=== PATIENT | male | born 1960 | race Hispanic/Latino ===

== ENCOUNTER 2017-01-11 15:13 | Observation (INO) | payer MEDICARE ==
[2017-01-11 16:20] LABS: BASO % 0.3 % (0.0-2.0); EOS # 0.1 K/uL (0.0-0.7); EOS % 1.4 % (0.0-4.0); HEMATOCRIT 39.8 % (35.0-51.0); LYMPH # 0.8 K/uL (1.0-4.3); LYMPH % 11.4 % (20.0-40.0); MEAN CELL VOLUME 87.7 fL (80.0-94.0); MEAN CORPUSCULAR HEMOGLOBIN 29.6 pg (27.0-31.0); MEAN CORPUSCULAR HGB CONC 33.8 g/dL (33.0-37.0); MEAN PLATELET VOLUME 8.6 fL (7.2-11.7); MONO # 0.3 K/uL (0.0-0.8); MONO % 4.3 % (0.0-10.0); RED CELL DISTRIBUTION WIDTH 14.6 % (11.5-14.5); WHITE BLOOD COUNT 7.4 K/uL (4.8-10.8)
--- NOTE | 2017-01-11 16:22 | RAD ---
PROCEDURE: CHEST RADIOGRAPH, 1 VIEW HISTORY: Detox/Psy COMPARISON: 06/30/2015 FINDINGS: LUNGS: Minimal hazy opacity in the left lung base likely atelectasis. Otherwise no other focal airspace opacity. PLEURA: No pneumothorax or pleural fluid seen. CARDIOVASCULAR: Normal. OSSEOUS STRUCTURES: The osseous structures demonstrate degenerative changes. Healed rib fractures on the left, stable. VISUALIZED UPPER ABDOMEN: Upper abdomen is suboptimally evaluated. OTHER FINDINGS: None. IMPRESSION: Minimal hazy opacity in the left lung base, likely atelectasis.
[2017-01-11 16:23] LABS: CHLORIDE 96 mmol/L (98-107); POTASSIUM 4.6 mmol/L (3.6-5.2); SODIUM 140 mmol/L (132-148)
[2017-01-11 16:25] LABS: BILIRUBIN,TOTAL 0.3 mg/dL (0.2-1.3); CARBON DIOXIDE 31 mmol/L (22-30); GFR AFRICAN-AMERICAN 54
[2017-01-11 16:26] LABS: ALB/GLOB RATIO 1.3 (1.0-2.1); ALKALINE PHOSPHATASE 49 U/L (38-126); ALT/SGPT 43 U/L (21-72); AST/SGOT 37 U/L (17-59); BLOOD UREA NITROGEN 24 mg/dL (9-20); GLUCOSE,RANDOM 122 mg/dL (75-110); TOTAL PROTEIN 7.4 g/dL (6.3-8.3)
[2017-01-11 16:27] LABS: ALCOHOL SERUM < 10 mg/dl (0-10)
[2017-01-11] MEDS ORDERED: Sodium Chloride 0.9% 1,000 ML IV ONE (17:08)
[2017-01-11] MEDS ORDERED: Naloxone 0.4 mg/ml Inj (Adult) IVP ONE (17:27)
--- NOTE | 2017-01-11 17:29 | C.PDOC ---
History Of Present Illness The patient, a 56y/o male who has an intermittent history of heroin abuse, presents to the ED via EMS for evaluation after he was found unresponsive [employer]. As per patient's ex-, patient was recently in a rehab program and was doing fine. Today, patient was found to be cyanotic and apneic in his house, after which EMS was called. As per EMS, patient received Narcan en route to ED and responded well. When asked, patient states he was getting ready to shovel snow outside prior to the onset of his symptoms. Upon arrival to ED, patient was awake, cooperative, and appeared to be retracted. As per historian, patient uses heroin via nasal administration. Otherwise, patient denies any complaints in the ED as well as headache, nausea, vomiting, chest pain, and shortness of breath. Time Seen by Provider: 01/11/17 15:17 Chief Complaint (Nursing): Substance Abuse History Per: Patient, EMS, Other (ex- ) History/Exam Limitations: no limitations Onset/Duration Of Symptoms: Hrs Current Symptoms Are (Timing): Still Present Suicide/Self Injury Attempted (Context): None Modifying Factor(s): Other (heroin ) Associated Symptoms: denies: Suicidal Thoughts, Suicidal Plan Involuntary Hold By: None Recent travel outside of the [place]: No Additional History Per: Patient, EMS Past Medical History Reviewed: Historical Data, Nursing Documentation, Vital Signs Vital Signs: Last Vital Signs Temp 97.3 F L 01/11/17 16:56 Pulse 94 H 01/11/17 17:50 Resp 14 01/11/17 17:50 BP 116/60 01/11/17 17:50 Pulse Ox 94 L 01/11/17 18:08 - Medical History PMH: Anxiety, COPD, HTN Denies: HIV, Hypercholesterolemia (denies), Chronic Kidney Disease Surgical History: No Surg Hx - [facility] Procedures APPLICATION OF SPLINT (02/05/14) DRAINAGE OF R LOW LEG SUBCU/FASCIA, OPEN APPROACH, DIAGN (11/15/16) INSERTION OF INFUSION DEV INTO R SUBCLAV VEIN, PERC APPROACH (11/15/16) PERFORMANCE OF URINARY FILTRATION, MULTIPLE (11/15/16) REMOVAL OF INFUSION DEVICE FROM UPPER VEIN, PERC APPROACH (11/15/16) Family History: States: Unknown Family Hx - Social History Hx Alcohol Use: No Hx Substance Use: No - Immunization History Hx Tetanus Toxoid Vaccination: No Hx Influenza Vaccination: No Hx Pneumococcal Vaccination: No Review Of Systems Except As Marked, All Systems Reviewed And Found Negative. Cardiovascular: Negative for: Chest Pain Respiratory: Negative for: Shortness of Breath Gastrointestinal: Negative for: Nausea, Vomiting Neurological: Positive for: Other (+cyanotic and apneic). Negative for: Headache Physical Exam - Physical Exam Appears: Non-toxic, No Acute Distress, Other (intermittently lethargic and groggy.) Skin: Normal Color, Warm, Dry Head: Atraumatic, Normacephalic Eye(s): bilateral: Normal Inspection, PERRL, EOMI Ear(s): Bilateral: Normal Nose: Normal, No Discharge Oral Mucosa: Moist Throat: Normal, No Erythema, No Exudate Neck: Normal ROM, Supple Chest: Symmetrical, No Deformity, No Tenderness Cardiovascular: Rhythm Regular, No Murmur Respiratory: Normal Breath Sounds, No Rales, No Rhonchi, No Wheezing Gastrointestinal/Abdominal: Soft, No Tenderness, No Guarding, No Rebound Extremity: Normal ROM, Capillary Refill (less than 2 seconds) Neurological/Psych: Oriented x3, Normal Speech, Normal Cognition Gait: Steady ED Course And Treatment - Laboratory Results Result Diagrams: 01/11/17 16:08 01/11/17 16:08 O2 Sat by Pulse Oximetry: 94 Medical Decision Making Medical Decision Making: Impression: 56y/o male found cyanotic and apneic [employer] Plan: * labs * CXR * EKG * Narcan IV * IV Fluids * reassess and disposition Progress Notes: labs, CXR, and EKG ordered and reviewed. Patient received Narcan IV and IV Fluids. During Physical Examination, patient was found to be hypotensive and with Oxygen Saturation of 90. Patient is placed in ED OBS and is pending sobriety from heroin use. ED OBSERVATION Time of observation admission: 15:50 - Observation admission statement Patient is being placed in observation because:: pending sobriety from heroine - Goals of Observation Goals of observation are:: hydration, evaluation Disposition - Disposition Disposition: HOSPITALIZED Disposition Time: 17:28 Condition: GUARDED - Clinical Impression Clinical Impression: Drug abuse, Heroin overdose - Scribe Statement The provider has reviewed the documentation as recorded by the Scribe (Maddi Walter) Provider Attestation: All medical record entries made by the Scribe were at my direction and personally dictated by me. I have reviewed the chart and agree that the record accurately reflects my personal performance of the history, physical exam, medical decision making, and the department course for this patient. I have also personally directed, reviewed, and agree with the discharge instructions and disposition. Physician Patient Turnover Patient Signed Over To: Angie Guaman Handoff Comments: patient with opioid OD, pending sobriety and discharge
[2017-01-11] MEDS ORDERED: Naloxone 0.4 mg/ml Inj (Adult) ONE (17:44)
[2017-01-12 00:21] LABS: RBC URINE 4 /hpf (0-3); URINE BACTERIA RARE (<OCC); URINE BILIRUBIN NEGATIVE (NEGATIVE); URINE BLOOD 3+ (NEGATIVE); URINE COLOR Yellow (YELLOW); URINE GLUCOSE (UA) 3+ mg/dL (Normal); URINE KETONE NEGATIVE (NEGATIVE); URINE LEUKOCYTE ESTERASE NEG Leu/uL (Negative); URINE PROTEIN 2+ mg/dL (NEGATIVE); URINE UROBILINOGEN NORMAL mg/dL (0.2-1.0); WBC URINE 14 /hpf (0-5)
[2017-01-12 00:52] VITALS: BP 122/65; PULSE 103; RESP 22; TEMP 98.2; O2SAT 91
--- NOTE | 2017-01-13 23:44 | CARD ---
APPROVED REPORT EKG Measurement Heart [id number] <Conclusion> Normal sinus rhythm Normal ECG
== END 2017-01-12 01:04 | disposition home or self-care (01) ==
LOC: C.ER 15:13 → C.9OBSV 15:30
PROVIDERS: ADMIT Emergency Medicine; ATTEND Emergency Medicine
DX: T40.1X1A Poisoning by heroin, accidental (unintentional), initial encounter (principal); Y92.009 Unspecified place in unspecified non-institutional (private) residence as the place of occurrence of the external cause; I95.9 Hypotension, unspecified; J44.9 Chronic obstructive pulmonary disease, unspecified; I10 Essential (primary) hypertension; F41.9 Anxiety disorder, unspecified
CPT/HCPCS: 71010; 80053; 80320; 80324; 80345; 80346; 80349; 80353; 80358; 80361; 81001; 82948; 83992; 85025; 93005; 96360; 96374; 99285; G0378; J2310; J7040